=== PATIENT | male | born 1935 | race Caucasian/White ===

== ENCOUNTER 2017-07-14 10:48 | Inpatient (IN) | payer OTHER, MEDICARE ==
[~2017-07-14] VITALS: Ht 167.6 cm; Wt 71.2 kg
[2017-07-14 11:10] VITALS: BP 96/57; PULSE 69; RESP 16; TEMP 97.9; O2SAT 99
[2017-07-14 11:41] LABS: AUTOMATED NEUTROPHIL # 11.5 TH/MM3 (1.8-7.7); BASOPHIL % 0.3 % (0.0-2.0); EOSINOPHIL # 0.2 TH/MM3 (0-0.4); EOSINOPHIL % 1.1 % (0.0-4.0); HEMATOCRIT 44.5 % (39.0-51.0); HEMOGLOBIN 15.4 GM/DL (13.0-17.0); LYMPH % 13.9 % (9.0-44.0); LYMPHOCYTE # 2.1 TH/MM3 (1.0-4.8); MEAN CELL VOLUME 85.9 FL (80.0-100.0); MEAN CORPUSCULAR HEMOGLOBIN 29.7 PG (27.0-34.0); MEAN CORPUSCULAR HGB CONC 34.5 % (32.0-36.0); MONO % 8.9 % (0.0-8.0); MONOCYTE # 1.4 TH/MM3 (0-0.9); NEUT % 75.8 % (16.0-70.0); PLATELET COUNT 175 TH/MM3 (150-450); RED BLOOD COUNT 5.18 MIL/MM3 (4.50-5.90); RED CELL DISTRIBUTION WIDTH 12.9 % (11.6-17.2); WHITE BLOOD COUNT 15.1 TH/MM3 (4.0-11.0)
[2017-07-14 11:50] LABS: INTERNATIONAL NORMALIZED RATIO 1.4 RATIO; PROTHROMBIN TIME - PATIENT 13.7 SEC (9.8-11.6)
[2017-07-14 11:57] LABS: ALBUMIN 3.5 GM/DL (3.4-5.0); AST (GOT) 15 U/L (15-37); BICARBONATE 21.6 MEQ/L (21.0-32.0); BLOOD UREA NITROGEN 34 MG/DL (7-18); CALCIUM 9.5 MG/DL (8.5-10.1); CHLORIDE 91 MEQ/L (98-107); CREATININE 1.29 MG/DL (0.60-1.30); GLOMERULAR FILTRATION RATE 53 ML/MIN (>89); GLUCOSE,RANDOM 185 MG/DL (74-106); SODIUM (NA) 126 MEQ/L (136-145)
[2017-07-14 12:07] LABS: ALKALINE PHOSPHATASE 57 U/L (45-117); ALT (GPT) 25 U/L (12-78); TOTAL BILIRUBIN ADULT 0.8 MG/DL (0.2-1.0); TOTAL PROTEIN 6.6 GM/DL (6.4-8.2); TROPONIN I 0.06 NG/ML (0.02-0.05)
--- NOTE | 2017-07-14 12:08 | RADRPT ---
EXAM DATE/TIME: 07/14/2017 11:30 [facility] COMPARISON: No previous studies available for comparison. INDICATIONS : Altered mental status RADIATION DOSE: 56.35 CTDIvol (mGy) MEDICAL HISTORY : None SURGICAL HISTORY : None. ENCOUNTER: Initial ACUITY: 1 day PAIN SCALE: 0/10 LOCATION: cranial TECHNIQUE: Multiple contiguous axial images were obtained of the head. Using automated exposure control and adjustment of the mA and/or kV according to patient size, radiation dose was kept as low as reasonably achievable to obtain optimal diagnostic quality images. DICOM format image data is av ailable electronically for review and comparison. FINDINGS: CEREBRUM: The ventricles are normal for age. No evidence of midline shift, mass lesion, hemorrha ge or acute infarction. No extra-axial fluid collections are seen. POSTERIOR FOSSA: The cerebellum and brainstem are intact. The 4th ventricle is midline. The cer ebellopontine angle is unremarkable. EXTRACRANIAL: The visualized portion of the orbits is intact. SKULL: The calvaria is intact. No evidence of skull fracture. CONCLUSION: Negative for an acute process. Marcus Burgos MD FACR on July 14, 2017 at 12:05 Board Certified Radiologist. This report was verified electronically.
--- NOTE | 2017-07-14 12:11 | RADRPT ---
EXAM DATE/TIME: 07/14/2017 11:49 [facility] COMPARISON: No previous studies available for comparison. INDICATIONS : Weakness, dizziness, nausea, chest pressure. MEDICAL HISTORY : Myocardial infarction. SURGICAL HISTORY : Myeocardial window. ENCOUNTER: Initial ACUITY: 3 days PAIN SCORE: 3/10 LOCATION: Bilateral chest FINDINGS: A single view of the chest demonstrates the lungs to be symmetrically aerated without evidence of mas s, infiltrate or effusion. The cardiomediastinal contours are unremarkable. Osseous structures are intact. CONCLUSION: Normal examination for a patient of this age. Javi Busch MD on July 14, 2017 at 12:10 Board Certified Radiologist. This report was verified electronically.
[2017-07-14] MEDS ORDERED: LISI-587 PO (12:12)
[2017-07-14] MEDS ORDERED: ASPI-183 PO (12:12)
[2017-07-14] MEDS ORDERED: NOVORP2 SQ (12:12)
[2017-07-14] MEDS ORDERED: LIPI40TA PO (12:12)
[2017-07-14] MEDS ORDERED: OMEP20TA93 PO (12:12)
[2017-07-14] MEDS ORDERED: PRED20 PO (12:12)
[2017-07-14] MEDS ORDERED: KETO0.5S2 RIGHT EYE (12:12)
[2017-07-14] MEDS ORDERED: TIMO0.255 EACH EYE (12:12)
[2017-07-14] MEDS ORDERED: METF1000 PO (12:12)
[2017-07-14] MEDS ORDERED: LATA.005%O EACH EYE (12:12)
[2017-07-14] MEDS ORDERED: SODIUM CHLORID 0.9% 500 ML INJ 500 ML IV ONE (12:30)
[2017-07-14] MEDS ORDERED: ASPIRIN 81 MG CHEW TAB CHEW ONE (13:15)
[2017-07-14 13:45] VITALS: BP 107/57; PULSE 79; RESP 20; O2SAT 98
[2017-07-14 13:49] LABS: BILIRUBIN, URINE NEG (NEG); BLOOD, URINE NEG (NEG); GLUCOSE,URINE NEG (NEG); HYALINE CAST, URINE 9 /lpf (RARE); KETONE, URINE 10 mg/dL (NEG); MUCUS URINE FEW /lpf (OCC); NITRITE,URINE NEG (NEG); PH, URINE 5.5 (5.0-8.5); URINE COLOR YELLOW (YELLW/STRAW); URINE LEUKOCYTE ESTERASE NEG (NEG)
--- NOTE | 2017-07-14 14:17 | EKG ---
Date Performed: 07/14/2017 Time Performed: 11:16:19 PTAGE: 82 years EKG: Sinus rhythm MARKED LEFT AXIS DEVIATION PATTERN CONSISTENT WITH PULMONARY DISEASE ABNORMAL ECG NO PREVIOUS TRACING DOCTOR: Edgar Plata Interpretating Date/Time 07/14/2017 14:17:05
[2017-07-14 15:13] VITALS: BP 106/57; PULSE 72; RESP 14; O2SAT 100
[2017-07-14] MEDS: SODIUM CHLOR 0.9% 1000 ML INJ 1,000 ML IV SCH (15:13)
--- NOTE | 2017-07-14 17:03 | PD ---
HPI Chief Complaint: Altered Mental Status Time Seen by Provider: 11:15 Travel History International Travel<30 days: No Contact w/Intl Traveler<30days: No Traveled to known affect area: No History of Present Illness HPI Patient is an 82-year-old [place]. The patient is awake and alert, oriented. He says that [place] and felt very unsteady on his feet. He says when he got into the started to feel "sick." He says he has been having waves of nausea. He says he does have occasional chest pain, substernally, he describes it as pressure. He denies fever chills. Denies headache, vomiting. He says he has noticed his blood pressure has been low. He does recall one day a week ago where his blood pressure was very high and he had a pulse of 150. Severity is mild to moderate. PFSH Past Medical History High Cholesterol: Yes Diabetes: Yes Patient Takes Glucophage: No Diminished Hearing: No Hypertension: Yes Tetanus Vaccination: < 5 Years Influenza Vaccination: Yes Social History Alcohol Use: No Tobacco Use: No Substance Use: No Allergies-Medications (Allergen,Severity, Reaction): Coded Allergies: No Known Allergies (Verified Allergy, Unknown, 07/14/17) Reported Meds & Prescriptions Reported Meds & Active Scripts Active Reported Ketorolac Opth Drops 0.5% Drops 1 Drop RIGHT EYE QID Lipitor (Atorvastatin Calcium) 40 Mg Tab 20 Mg PO HS Aspirin 325 Mg Tab 325 Mg PO DAILY Omeprazole 20 Mg Tab 40 Mg PO DAILY Take 30 minutes prior to the same meal each day Metformin (Metformin HCl) 1,000 Mg Tab 1,000 Mg PO BID Timoptic Opth Drops (Timolol Opth Drops) 0.25 % Soln 2 Drop EACH EYE DAILY Prednisone 20 Mg Tab 60 Mg PO DAILY Take 40 mg (2 tablets) daily for 5 days Xalatan Opth Drops (Latanoprost) 0.005% Drops 1 Drop EACH EYE HS Novolin R Inj (Insulin Human Regular) 1,000 Unit/10 Ml Vial 0 SQ ACHS Sliding Scale As Directed. 70-149=0 UNITS, 150-199=3 UNITS, 200-249=4 UNITS, 250-299=6 UNITS, 300-349=8 UNITS, 350 OR MORE=10 UNITS Zestoretic (Lisinopril-Hctz) 20-25 Mg Tab 1 Tab PO DAILY Review of Systems Except as stated in HPI: all other systems reviewed are Neg General / Constitutional: No: Fever, Chills HENT: Positive: Lightheadedness, No: Headaches Cardiovascular: Positive: Chest Pain or Discomfort Respiratory: No: Cough, Shortness of Breath Gastrointestinal: Positive: Nausea, No: Vomiting, Abdominal Pain Musculoskeletal: No: Edema Skin: No Rash, No Change in Pigmentation Neurologic: Positive: Dizziness Physical Exam Narrative GENERAL: Awake and alert, in no acute distress. SKIN: Focused skin assessment warm/dry. No wounds or signs of infection. HEAD: Atraumatic. Normocephalic. EYES: Pupils equal and round. No scleral icterus. Extraocular movements intact. ENT: Mucous membranes pink and moist. NECK: Trachea midline. No JVD. CARDIOVASCULAR: Regular rate and rhythm. No murmur appreciated. RESPIRATORY: No accessory muscle use. Clear to auscultation. Breath sounds equal bilaterally. GASTROINTESTINAL: Abdomen soft, non-tender, nondistended. MUSCULOSKELETAL: No obvious deformities. No clubbing. No cyanosis. No edema. NEUROLOGICAL: Awake and alert. No obvious cranial nerve deficits. Motor grossly within normal limits. Normal speech. PSYCHIATRIC: Appropriate mood and affect; insight and judgment normal. Data Data Last Documented VS Vital Signs Date Time Temp Pulse Resp B/P (MAP) Pulse Ox O2 Delivery O2 Flow Rate FiO2 07/14/17 13:45 79 20 107/57 (74) 98 Room Air 07/14/17 11:10 97.9 Orders Orders Complete Blood Count With Diff (07/14/17 11:15) Comprehensive Metabolic Panel (07/14/17 11:15) Prothrombin Time / Inr (Pt) (07/14/17 11:15) Act Partial Throm Time (Ptt) (07/14/17 11:15) Troponin I (07/14/17 11:15) Thyroid Stimulating Hormone (07/14/17 11:15) Urinalysis - C+S If Indicated (07/14/17 11:15) Chest, Single Ap (07/14/17 11:15) Ct Brain W/O Iv Contrast(Rout) (07/14/17 11:15) Blood Glucose (07/14/17 11:15) Ecg Monitoring (07/14/17 11:15) Iv Access Insert/Monitor (07/14/17 11:15) Oximetry (07/14/17 11:15) Cortisol (07/14/17 11:15) Sodium Chlorid 0.9% 500 Ml Inj (Ns 500 M (07/14/17 12:30) Aspirin Chew (Aspirin Chew) (07/14/17 13:15) Cath For Specimen (07/14/17 13:15) Electrocardiogram (07/14/17 ) Admit Order (Ed Use Only) (07/14/17 ) Admit To Inpatient (07/14/17 ) Inpatient Certification (07/14/17 ) Diet Regular Basic (07/14/17 Dinner) Vital Signs (Adult) ENA.Q4H (07/14/17 14:48) Consult Pt Eval & Treat (07/14/17 14:48) Vital Signs (Adult) ENA.Q4H (07/14/17 14:49) Sodium Chlor 0.9% 1000 Ml Inj (Ns 1000 M (07/14/17 15:00) Labs Laboratory Tests Test 07/14/17 11:30 07/14/17 13:20 White Blood Count 15.1 TH/MM3 Red Blood Count 5.18 MIL/MM3 Hemoglobin 15.4 GM/DL Hematocrit 44.5 % Mean Corpuscular Volume 85.9 FL Mean Corpuscular Hemoglobin 29.7 PG Mean Corpuscular Hemoglobin Concent 34.5 % Red Cell Distribution Width 12.9 % Platelet Count 175 TH/MM3 Mean Platelet Volume 10.0 FL Neutrophils (%) (Auto) 75.8 % Lymphocytes (%) (Auto) 13.9 % Monocytes (%) (Auto) 8.9 % Eosinophils (%) (Auto) 1.1 % Basophils (%) (Auto) 0.3 % Neutrophils # (Auto) 11.5 TH/MM3 Lymphocytes # (Auto) 2.1 TH/MM3 Monocytes # (Auto) 1.4 TH/MM3 Eosinophils # (Auto) 0.2 TH/MM3 Basophils # (Auto) 0.0 TH/MM3 CBC Comment DIFF FINAL Differential Comment Prothrombin Time 13.7 SEC Prothromb Time International Ratio 1.4 RATIO Activated Partial Thromboplast Time 24.3 SEC Blood Urea Nitrogen 34 MG/DL Creatinine 1.29 MG/DL Random Glucose 185 MG/DL Total Protein 6.6 GM/DL Albumin 3.5 GM/DL Calcium Level 9.5 MG/DL Alkaline Phosphatase 57 U/L Aspartate Amino Transf (AST/SGOT) 15 U/L Alanine Aminotransferase (ALT/SGPT) 25 U/L Total Bilirubin 0.8 MG/DL Sodium Level 126 MEQ/L Potassium Level 4.3 MEQ/L Chloride Level 91 MEQ/L Carbon Dioxide Level 21.6 MEQ/L Anion Gap 13 MEQ/L Estimat Glomerular Filtration Rate 53 ML/MIN Troponin I 0.06 NG/ML Thyroid Stimulating Hormone 3rd Gen 2.460 uIU/ML Random Cortisol 26.3 MCG/DL Urine Color YELLOW Urine Turbidity CLEAR Urine pH 5.5 Urine Specific [place] 1.012 Urine Protein NEG mg/dL Urine Glucose (UA) NEG mg/dL Urine Ketones 10 mg/dL Urine Occult Blood NEG Urine Nitrite NEG Urine Bilirubin NEG Urine Urobilinogen LESS THAN 2.0 MG/DL Urine Leukocyte Esterase NEG Urine RBC LESS THAN 1 /hpf Urine WBC 1 /hpf Urine Hyaline Casts 9 /lpf Urine Mucus FEW /lpf Microscopic Urinalysis Comment CATH-CULT NOT IND MDM Medical Decision Making Medical Screen Exam Complete: Yes Emergency Medical Condition: Yes Medical Record Reviewed: Yes Interpretation(s) ECG shows normal sinus rhythm, no ST elevation or depression. Differential Diagnosis UTI versus dehydration versus electrolyte abnormality versus CVA Narrative Course Patient is an 82-year-old male who comes in due to altered mental status. Patient says he is just been feeling weak and dizzy. Exam shows no neurologic abnormalities. IV established, labs sent. Labs show some evidence of dehydration. His sodium is 126. His white count is 15.1. His troponin is very slightly elevated to 0.06. He was given aspirin. He was given a bolus of fluids. Chest x-ray and CT of the head performed show no acute abnormalities. Last [address] 07/14/17 1115 Signed Impressions: Service Date/Time: Friday, July 14, 2017 11:30 - CONCLUSION: Negative for an acute process. Marcus Burgos MD FACR Chest X-Ray 07/14/17 1115 Signed Impressions: Service Date/Time: Friday, July 14, 2017 11:49 - CONCLUSION: Normal examination for a patient of this age. Javi Busch MD Patient has been on chronic steroids, has not had steroids since Wednesday, there is some concern for adrenal insufficiency. Patient will be admitted for further management. Diagnosis Primary Impression: Altered mental status Qualified Codes: R41.82 - Altered mental status, unspecified Additional Impressions: Dehydration Hyponatremia Elevated troponin Admitting Information Admitting Physician Requests: Admit Bhakti Peguero MD Jul 14, 2017 17:03
[2017-07-14 18:30] VITALS: BP 124/66; PULSE 75; RESP 19; O2SAT 100
--- NOTE | 2017-07-14 18:37 | HHI.HP ---
[facility] Admission Diagnosis Elevated Troponin, AMS, hyponatremia Diagnoses: Chief Complaint: Generalized weakness, dizziness Travel History International Travel<30 Days: No Contact w/Intl Traveler <30 Da: No Traveled to Known Affected Are: No History of Present Illness Patient is a 82-year-old male right handed history of diabetes type 2, hypertension. He was recently discharged from [facility] in [place] because of vision loss ? edema, inflammation specifically of the right eye. Unclear what the diagnosis is but sounds like optic neuritis as patient was placed on high-dose steroids. He states that he was on June 26. and he was given high -dose IV steroids and then was discharged on 60 mg of prednisone once a day for 11 days which he completed on July 09. He has been off the steroids for the past 5 days now. states that he has been getting weaker. This a.m. on way to [facility] while walking felt lightheaded with near passing out sensation. With bilateral leg weakness and feels like falling. Patient also states that he has not been eating well for the past 10 days. He checks his blood sugars on a regular basis and states good hypoglycemic awareness. He is on metformin at home for his diabetes and when discharged from [place] he was given a sliding scale of insulins to be given based on blood sugar readings. His initial blood pressure on evaluation the ER was systolic blood pressures in the 80s. With regards to his vision he states that there was no improvement in the medial vision of his right eye even on completing course of steroids. His left eye has fairly good condition with history of glaucoma 20/40 vision. The plan was for follow-up and possible surgery per patient that involves going through the groin- doesn't sound like a shunt. Patient states that his knows more details. I tried calling the number listed [phone] no unanswered left message. Patient was referred here and admitted for further evaluation and management. Patient currently is awake alert denies any headache but is very anxious about totally losing his right vision Past Family Social History Past Medical History Patient denies any history of CVA, denies any history of CAD. Diabetes type 2 on metformin. And on sliding scale Regular Insulin since he was started on steroids. History of hypertension Past Surgical History Bowel resection many years ago secondary to a mass which turned out to be precancerous. History of prostate cancer status post radiation therapy History pericardial effusion with a pericardial window was placed this was in 1970s. Reported Medications Ketorolac Opth Drops 0.5% Drops 1 Drop RIGHT EYE QID Lipitor (Atorvastatin Calcium) 40 Mg Tab 20 Mg PO HS Aspirin 325 Mg Tab 325 Mg PO DAILY Omeprazole 20 Mg Tab 40 Mg PO DAILY Take 30 minutes prior to the same meal each day Metformin (Metformin HCl) 1,000 Mg Tab 1,000 Mg PO BID Timoptic Opth Drops (Timolol Opth Drops) 0.25 % Soln 2 Drop EACH EYE DAILY Xalatan Opth Drops (Latanoprost) 0.005% Drops 1 Drop EACH EYE HS Novolin R Inj (Insulin Human Regular) 1,000 Unit/10 Ml Vial 0 SQ ACHS Sliding Scale As Directed. 70-149=0 UNITS, 150-199=3 UNITS, 200-249=4 UNITS, 250-299=6 UNITS, 300-349=8 UNITS, 350 OR MORE=10 UNITS Zestoretic (Lisinopril-Hctz) 20-25 Mg Tab 1 Tab PO DAILY S/P course of Prednisone course 07/09 Allergies: Coded Allergies: No Known Allergies (Verified Allergy, Unknown, 07/14/17) Family History Noncontributory Social History History of smoking quit 40 years ago Denies alcohol or IV drug use Physical Exam Vital Signs Vital Signs Date Time Temp Pulse Resp B/P (MAP) Pulse Ox O2 Delivery O2 Flow Rate FiO2 07/14/17 18:30 75 19 124/66 (85) 100 Room Air 07/14/17 15:13 72 14 106/57 (73) 100 Room Air 07/14/17 13:45 79 20 107/57 (74) 98 Room Air 07/14/17 11:10 97.9 69 16 96/57 (70) 99 Physical Exam GENERAL: This is a well-nourished, well-developed patient, in no apparent distress. SKIN: No rashes, ecchymoses or lesions. Cool and dry. HEAD: Atraumatic. Normocephalic. No temporal or scalp tenderness. EYES: Pupils equal round . No scleral icterus. No injection or drainage. EOM full range of motion bilaterally left eye- 20/40 vision- per patient baseline right eye- lateral peripheral vision - can still make out fingers but on nasal side/medial vision- unable to see ENT: Nose without bleeding, purulent drainage or septal hematoma. Throat without erythema, tonsillar hypertrophy or exudate. Uvula midline. Airway patent. NECK: Trachea midline. No JVD or lymphadenopathy. Supple, nontender, no meningeal signs. CARDIOVASCULAR: Regular rate and rhythm without murmurs, gallops, or rubs. RESPIRATORY: Clear to auscultation. Breath sounds equal bilaterally. No wheezes , rales, or rhonchi. GASTROINTESTINAL: Abdomen soft, non-tender, nondistended. No hepato-splenomegaly , or palpable masses. No guarding. MUSCULOSKELETAL: Extremities without clubbing, cyanosis, or edema. No joint tenderness, effusion, or edema noted. No calf tenderness. Negative Homans sign bilaterally. NEUROLOGICAL: Awake and alert. Cranial nerves II through XII intact. Motor and sensory grossly within normal limits. Five out of 5 muscle strength in all muscle groups. Normal speech. gait testing deferred Laboratory Laboratory Tests Test 07/14/17 11:30 07/14/17 13:20 White Blood Count 15.1 Red Blood Count 5.18 Hemoglobin 15.4 Hematocrit 44.5 Mean Corpuscular Volume 85.9 Mean Corpuscular Hemoglobin 29.7 Mean Corpuscular Hemoglobin Concent 34.5 Red Cell Distribution Width 12.9 Platelet Count 175 Mean Platelet Volume 10.0 Neutrophils (%) (Auto) 75.8 Lymphocytes (%) (Auto) 13.9 Monocytes (%) (Auto) 8.9 Eosinophils (%) (Auto) 1.1 Basophils (%) (Auto) 0.3 Neutrophils # (Auto) 11.5 Lymphocytes # (Auto) 2.1 Monocytes # (Auto) 1.4 Eosinophils # (Auto) 0.2 Basophils # (Auto) 0.0 CBC Comment DIFF FINAL Differential Comment Prothrombin Time 13.7 Prothromb Time International Ratio 1.4 Activated Partial Thromboplast Time 24.3 Blood Urea Nitrogen 34 Creatinine 1.29 Random Glucose 185 Total Protein 6.6 Albumin 3.5 Calcium Level 9.5 Alkaline Phosphatase 57 Aspartate Amino Transf (AST/SGOT) 15 Alanine Aminotransferase (ALT/SGPT) 25 Total Bilirubin 0.8 Sodium Level 126 Potassium Level 4.3 Chloride Level 91 Carbon Dioxide Level 21.6 Anion Gap 13 Estimat Glomerular Filtration Rate 53 Troponin I 0.06 Thyroid Stimulating Hormone 3rd Gen 2.460 Random Cortisol 26.3 Urine Color YELLOW Urine Turbidity CLEAR Urine pH 5.5 Urine Specific Hallie 1.012 Urine Protein NEG Urine Glucose (UA) NEG Urine Ketones 10 Urine Occult Blood NEG Urine Nitrite NEG Urine Bilirubin NEG Urine Urobilinogen LESS THAN 2.0 Urine Leukocyte Esterase NEG Urine RBC LESS THAN 1 Urine WBC 1 Urine Hyaline Casts 9 Urine Mucus FEW Microscopic Urinalysis Comment CATH-CULT NOT IND Result Diagram: 07/14/17 1130 07/14/17 1130 Imaging Last Impressions Head CT 07/14/17 1115 Signed Impressions: Service Date/Time: Friday, July 14, 2017 11:30 - CONCLUSION: Negative for an acute process. Marcus Burgos MD FACR Chest X-Ray 07/14/17 1115 Signed Impressions: Service Date/Time: Friday, July 14, 2017 11:49 - CONCLUSION: Normal examination for a patient of this age. MD Eunice Vazquez VTE Risk Assessment Caprini VTE Risk Assessment: Mod/High Risk (score >= 2) VTE Pharm Contraindication: ? hsitory of bleeding in the right eye Caprini Risk Assessment Model Point Value = 1 Point Value = 2 Point Value = 3 Point Value = 5 Age 41-60 Minor surgery BMI > 25 kg/m2 Swollen legs Varicose veins or History of unexplained or recurrent spontaneous Oral contraceptives or hormone replacement Sepsis (< 1 month) Serious lung disease, including pneumonia (< 1 month) Abnormal pulmonary function Acute myocardial infarction Congestive heart failure (< 1 month) History of inflammatory bowel disease Medical patient at bed rest Age 61-74 Arthroscopic surgery Major open surgery (> 45 min) Laparoscopic surgery (> 45 min) Malignancy Confined to bed (> 72 hours) Immobilizing plaster cast Central venous access Age >= 75 History of VTE Family history of VTE Factor V Leiden Prothrombin [id number] Lupus anticoagulant Anticardiolipin antibodies Elevated serum homocysteine Heparin-induced thrombocytopenia Other congenital or acquired thrombophilia Stroke (< 1 month) Elective arthroplasty Hip, pelvis, or leg fracture Acute spinal cord injury (< 1 month) Prophylaxis Regimen Total Risk Factor Score Risk Level Prophylaxis Regimen 0-1 Low Early ambulation 2 Moderate Order ONE of the following: *Sequential Compression Device (SCD) *Heparin 5000 units SQ BID 3-4 Higher Order ONE of the following medications: *Heparin 5000 units SQ TID *Enoxaparin/Lovenox 40 mg SQ daily (WT < 150 kg, CrCl > 30 mL/min) *Enoxaparin/Lovenox 30 mg SQ daily (WT < 150 kg, CrCl > 10-29 mL/min) *Enoxaparin/Lovenox 30 mg SQ BID (WT < 150 kg, CrCl > 30 mL/min) AND/OR *Sequential Compression Device (SCD) 5 or more Highest Order ONE of the following medications: *Heparin 5000 units SQ TID (Preferred with Epidurals) *Enoxaparin/Lovenox 40 mg SQ daily (WT < 150 kg, CrCl > 30 mL/min) *Enoxaparin/Lovenox 30 mg SQ daily (WT < 150 kg, CrCl > 10-29 mL/min) *Enoxaparin/Lovenox 30 mg SQ BID (WT < 150 kg, CrCl > 30 mL/min) AND *Sequential Compression Device (SCD) Assessment and Plan Assessment and Plan 82-year-old male presenting with generalized weakness dizziness, weakness status post recent course of high-dose steroids June 26 43 was on high-dose IV steroids and was discharged on 60 mg of prednisone once a day for 11 days recently completed July 09. Possible relative adrenal insufficiency. Hypotension. We'll start on by mouth steroids Check orthostatics Continue IV fluids. Patient blood pressure now is 122/70. We'll check 2-D echo and carotid ultrasound for completion give prednisone 40 mg po x 1 now then start Prednisone 20 mg po bid in am Recent history of Acute right vision loss- edema vs neuritis vs vascular in etiology History of glaucoma- chronic . no improvement with steroids. But will restart this due to above #1 and do gradual taper Continue on glaucoma eyedrops medications. Per patient he was supposed to follow-up with ophthalmology sometime this week and was planned to refer to a neurovascular surgeon for procedure - in [place] that involves "going going through the right groin" Doesn't know the details and states his knows details Tried calling number on the his [phone] no answer. Will try again tomorrow and get more records Ophthalmology consult in house Diabetes type 2 on metformin + SS regular insulin Will expect blood sugars to be labile and erratic secondary to steroids Will start patient on sliding scale Hold off on metformin for now. Hyponatremia. Can be secondary to steroids. We'll check BMP in a.m. TSH normal History of hypertension. low BPs . Will discontinue his BP meds Zestoretic History of hyperlipidemia continue on statins. Check CK level. Generalized weakness with a PT consult in a.m. nonfocal exam Motor exam there was no proximal muscle weakness noted. Leukocytosis- likely reactive from steroids use Bilateral teds SCDs for DVT prophylaxis continue PPI PT eval in am Physician Certification 2 Midnight Certification Type: Admission for Inpatient Services Order for Inpatient Services The services are ordered in accordance with Medicare regulations or non- Medicare payer requirements, as applicable. In the case of services not specified as inpatient-only, they are appropriately provided as inpatient services in accordance with the 2-midnight benchmark. Estimated LOS (days): 3 days is the estimated time the patient will need to remain in the hospital, assuming treatment plan goals are met and no additional complications. Post-Hospital Plan: Not yet determined Sylvester Richardson MD Jul 14, 2017 18:37
[2017-07-14] MEDS ORDERED: GLUCAGON 1 MG/ML VIAL OTHER PRN ×2 (19:15)
[2017-07-14] MEDS ORDERED: GLUCAGON 1 MG/ML VIAL IM PRN (19:15)
[2017-07-14] MEDS ORDERED: DEXTROSE 50% IN WATER 50 ML VIAL(D50) IV PUSH PRN ×3 (19:15)
[2017-07-14 20:00] VITALS: BP 110/58; PULSE 71; RESP 18; TEMP 98.2; O2SAT 99
[2017-07-14] MEDS ORDERED: predniSONE 20 MG TAB PO ONE ×2 (20:00→20:15)
[2017-07-14 20:27] LABS: TROPONIN I 0.05 NG/ML (0.02-0.05)
--- NOTE | 2017-07-14 20:43 | RADRPT ---
EXAM DATE/TIME: 07/14/2017 19:07 [facility] COMPARISON: No previous studies available for comparison. INDICATIONS : Transient ischemic attack. MEDICAL HISTORY : Hypercholesterolemia. Hypertension. Diabetes. Blindness. Prostate cancer. Radiation therapy. Parica rdial effusion. SURGICAL HISTORY : Bowel resection. ENCOUNTER: Initial ACUITY: 1 day PAIN SCORE: 0/10 LOCATION: Bilateral neck PEAK SYSTOLIC VELOCITIES (cm/sec): ICA/CCA RATIO: Right: 1.3 Left: 1.2 ICA: Right: 106 Left: 103 CCA: Right: 81 Left: 83 ECA: Right: 111 Left: 81 VERTEBRAL: Right: 53 antegrade Left: 54 antegrade Elevated flow velocities and ICA/CCA ratios have been found to correlate with increased degrees of vessel stenosis, calculated as percentage of diameter relative to a normal segment of distal ICA/CCA FINDINGS: RIGHT CAROTID: No significant stenosis is visualized. The waveforms are within normal limits. LEFT CAROTID: No significant stenosis is visualized. The waveforms are within normal limits. VERTEBRAL ARTERIES: Antegrade flow is seen in both vertebral arteries. MISCELLANEOUS: None. CONCLUSION: 1. Mild visible plaque formation in the carotid arteries. No hemodynamically significant stenosis. Arben Crews MD on July 14, 2017 at 20:40 Board Certified Radiologist. This report was verified electronically.
[2017-07-14] MEDS ORDERED: predniSONE 20 MG TAB PO SCH (21:00)
[2017-07-14] MEDS: KETOROLAC TROMETHAMINE 0.5% OPHT SOLN 5 ML BTL RIGHT EYE SCH (21:00)
[2017-07-14] MEDS: LATANOPROST 0.005% OPHT SOLN 2.5 ML BTL EACH EYE SCH (22:06)
[2017-07-14] MEDS: ATORVASTATIN 20 MG TAB PO SCH (22:07)
[2017-07-14] MEDS: INSULIN ASPART SUPPLEMENTAL SCALE SQ SCH (22:07)
[2017-07-15] VITALS (10 sets, daily range): BP systolic 111–146; BP diastolic 58–68; PULSE 64–92; RESP 13–19; TEMP 97.6–98.4; O2SAT 96–100
[2017-07-15] MEDS: SODIUM CHLOR 0.9% 1000 ML INJ 1,000 ML IV SCH ×2 (01:08→14:50)
[2017-07-15] MEDS ORDERED: diphenhydrAMINE HCL 25 MG CAP PO ONE ×2 (01:45→21:45)
[2017-07-15 07:21] LABS: AUTOMATED NEUTROPHIL # 6.5 TH/MM3 (1.8-7.7); BASOPHIL % 0.1 % (0.0-2.0); EOSINOPHIL % 0.1 % (0.0-4.0); HEMOGLOBIN 13.7 GM/DL (13.0-17.0); LYMPH % 11.5 % (9.0-44.0); LYMPHOCYTE # 0.9 TH/MM3 (1.0-4.8); MEAN CELL VOLUME 86.9 FL (80.0-100.0); MEAN CORPUSCULAR HEMOGLOBIN 30.4 PG (27.0-34.0); MONO % 4.6 % (0.0-8.0); MONOCYTE # 0.4 TH/MM3 (0-0.9); NEUT % 83.7 % (16.0-70.0); PLATELET COUNT 148 TH/MM3 (150-450); RED BLOOD COUNT 4.49 MIL/MM3 (4.50-5.90); WHITE BLOOD COUNT 7.8 TH/MM3 (4.0-11.0)
[2017-07-15] MEDS: INSULIN ASPART SUPPLEMENTAL SCALE SQ SCH ×4 (08:00→21:13)
--- NOTE | 2017-07-15 08:36 | HHI.PR ---
Subjective Remarks no headaches, feels stronger has been up going to bathroom- ambulating- no dizziness, nausea or vomiting BS 208 vision unchanged Objective Vitals Vital Signs Date Time Temp Pulse Resp B/P (MAP) Pulse Ox O2 Delivery O2 Flow Rate FiO2 07/15/17 04:00 92 07/15/17 04:00 Room Air 07/15/17 04:00 98.0 68 18 118/60 (79) 98 07/15/17 00:00 97.9 67 18 112/66 (81) 99 07/15/17 00:00 Room Air 07/15/17 00:00 80 07/14/17 21:00 Room Air 07/14/17 20:30 21 07/14/17 20:24 07/14/17 20:00 98.2 71 18 110/58 (75) 99 07/14/17 19:43 (85) 07/14/17 18:30 75 19 124/66 (85) 100 Room Air 07/14/17 15:13 72 14 106/57 (73) 100 Room Air 07/14/17 13:45 79 20 107/57 (74) 98 Room Air 07/14/17 11:10 97.9 69 16 96/57 (70) 99 I/O 07/14/17 07/14/17 07/14/17 07/15/17 07/15/17 07/15/17 07:00 15:00 23:00 07:00 15:00 23:00 Intake Total 500 ml Balance 500 ml Intake IV Total 500 ml Result Diagram: 07/15/17 0630 07/14/17 1950 Imaging Last Impressions Head CT 07/14/17 1115 Signed Impressions: Service Date/Time: Friday, July 14, 2017 11:30 - CONCLUSION: Negative for an acute process. Marcus Burgos MD FACR Chest X-Ray 07/14/17 1115 Signed Impressions: Service Date/Time: Friday, July 14, 2017 11:49 - CONCLUSION: Normal examination for a patient of this age. Javi Busch MD Carotid Artery Ultrasound 07/14/17 0000 Signed Impressions: Service Date/Time: Friday, July 14, 2017 19:07 - CONCLUSION: 1. Mild visible plaque formation in the carotid arteries. No hemodynamically significant stenosis. Arben Crews MD Objective Remarks awake and alert, oriented x 3 anicteric EOM full range of motion right eye- + lateral vision but medial vision absent no facial asymmetry no nuchal rigidity lungs-clear regular rhyhtm abdomen soft, nontender extremities no edema A/P Assessment and Plan 82-year-old male presenting with generalized weakness dizziness, weakness status post recent course of high-dose steroids June 26 45 was on high-dose IV steroids and was discharged on 60 mg of prednisone once a day for 11 days recently completed July 09. Possible relative adrenal insufficiency. Hypotension. History of hypertension MOnitor BPs off IVF We'll check 2-D echo and carotid ultrasound for completion given prednisone 40 mg po x 1 on admission then start Prednisone 20 mg po bid as OP was on Zestoretic- discontinued on admission Recent history of Acute right vision loss- edema vs neuritis vs vascular in etiology History of glaucoma- chronic . no improvement with steroids. But will restart this due to above #1 and do gradual taper Continue on glaucoma eyedrops medications. spoke to briefly on phone - per was supposed to be referred to a neurovascular operations management trainee specialist in [place] - there was some "bleed" - Ophthalmology consult in house Diabetes type 2 on metformin + SS regular insulin Will expect blood sugars to be labile and erratic secondary to steroids Will start patient on sliding scale Metformin as OP_ hold for now- ff BMP start standing Levemer hs Hyponatremia. . Improved. . TSH normal History of hyperlipidemia continue on statins. Check CK level. Generalized weakness with a PT consult in a.m. nonfocal exam Motor exam there was no proximal muscle weakness noted. Leukocytosis- likely reactive from steroids use SCds/RICHARDSON for DVT prophylaxsis Early ambulation HOld chemical prophylaxis- with ? bleed in the eye If stable- consider DC home today or in am with steroid after seen by Ophthalmology Sylvester Lima MD Jul 15, 2017 08:36
[2017-07-15] MEDS: KETOROLAC TROMETHAMINE 0.5% OPHT SOLN 5 ML BTL RIGHT EYE SCH ×4 (09:00→21:00)
[2017-07-15] MEDS: TIMOLOL MALEATE 0.25% OPHT SOLN 5 ML BTL EACH EYE SCH (09:00)
[2017-07-15] MEDS: ASPIRIN 325 MG TAB PO SCH (09:29)
[2017-07-15] MEDS: PANTOPRAZOLE SOD 40 MG DELAYED RELEASE TAB PO SCH (09:30)
[2017-07-15] MEDS: predniSONE 20 MG TAB PO SCH ×2 (09:30→21:00)
[2017-07-15 11:27] LABS: BICARBONATE 26.3 MEQ/L (21.0-32.0); CALCIUM 8.7 MG/DL (8.5-10.1); CREATININE 1.04 MG/DL (0.60-1.30)
--- NOTE | 2017-07-15 15:21 | ECHRPT ---
Indication: Presyncope CONCLUSIONS The left ventricular systolic function is low normal with an estimated ejection fraction in the rang e of 50- 55%. Wall thickness is measured at the upper limits of normal. Normal left ventricular size. There is trace tricuspid valve regurgitation. The estimated pulmonary arterial pressure is 39.4 mmHg. BP: 118 / 60 HR: 92 Rhythm: Sinus MEASUREMENTS (Male / Female) Normal Values Technical Quality:Very technically difficult study 2D ECHO LV Diastolic Diameter PLAX 4.2 cm 4.2 - 5.9 / 3.9 - 5.3 cm LV Systolic Diameter PLAX 3.0 cm IVS Diastolic Thickness 1.1 cm 0.6 - 1.0 / 0.6 - 0.9 cm LVPW Diastolic Thickness 1.0 cm 0.6 - 1.0 / 0.6 - 0.9 cm LV Relative Wall Thickness 0.5 RV Internal Dim ED PLAX 3.2 cm LVOT Diameter 1.7 cm LA Systolic Diameter LX 3.8 cm 3.0 - 4.0 / 2.7 - 3.8 cm M-MODE Aortic Root Diameter MM 3.3 cm LA Systolic Diameter MM 3.0 cm LA Ao Ratio MM 0.9 AV Cusp Separation MM 1.7 cm DOPPLER AV Peak Velocity 112.0 cm/s AV Peak Gradient 5.0 mmHg LVOT Peak Velocity 71.3 cm/s LVOT Peak Gradient 2.0 mmHg AV Area Cont Eq pk 1.4 cm MV Area PHT 2.9 cm Mitral E Point Velocity 44.4 cm/s Mitral A Point Velocity 57.1 cm/s Mitral E to A Ratio 0.8 LV E' Lateral Velocity 7.2 cm/s Mitral E to LV E' Lateral Ratio 6.2 LV E' Septal Velocity 7.0 cm/s Mitral E to LV E' Septal Ratio 6.3 TR Peak Velocity 271.0 cm/s TR Peak Gradient 29.4 mmHg Right Atrial Pressure 10.0 mmHg Pulmonary Artery Systolic Pressu 39.4 mmHg Right Ventricular Systolic Press 39.4 mmHg FINDINGS LEFT VENTRICLE Wall thickness is measured at the upper limits of normal. Normal left ventricular size. The left ventricular systolic function is low normal with an estimated ejection fraction in the rang e of 50- 55%. RIGHT VENTRICLE Normal right ventricular size and systolic function. LEFT ATRIUM The left atrial size is normal. RIGHT ATRIUM The right atrial size is normal. ATRIAL SEPTUM Normal atrial septal thickness without atrial level shunting by limited color doppler interrogation. AORTA The aortic root and proximal ascending aorta are normal in size on limited imaging. MITRAL VALVE Structurally normal mitral valve. No mitral valve stenosis or regurgitation. AORTIC VALVE Trileaflet aortic valve. No aortic valve stenosis or regurgitation. TRICUSPID VALVE Structurally normal tricuspid valve. There is trace tricuspid valve regurgitation. The estimated pulmonary arterial pressure is 39.4 mmHg. PULMONARY VALVE No pulmonary valve regurgitation or stenosis. VESSELS The inferior vena cava is normal in size. PERICARDIUM No pericardial effusion. Junior Miller MD, FACC, [facility] [place] (Electronically Signed) Final Date:15 July 2017 15:20
--- NOTE | 2017-07-15 16:45 | PD.CONS ---
History of Present Illness Service Ophthalmology Consult Requested By Reason for Consult decreased vision OD Primary Care Physician [facility] Diagnoses: History of Present Illness 82 yo WM with a h/o DM, HTN. He had sudden decreased vision in his right eye nasally early this month and went to see his Presser Machine at the [place]. They dilated him and found a hyperemic, edematous optic disc OD. He was sent to see the Retina specialist at the [facility] (Dr. Santoyo) who recommended he get 3 days of IV Solumedrol. He also had an extensive workup - Lyme, Bartonella, Toxo , RPR all neg. LP was done which had normal results as well. He was discharged on oral steroids which has led to him feeling weaker. 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 2 days ago he felt lightheaded as if he was going to pass out which led to his admission at [facility]. 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 His follow up visit with Dr. Santoyo was supposed to be in the beginning of July. Past Family Social History Allergies: Coded Allergies: No Known Allergies (Verified Allergy, Unknown, 07/14/17) Physical Exam Vital Signs Vital Signs Date Time Temp Pulse Resp B/P (MAP) Pulse Ox O2 Delivery O2 Flow Rate FiO2 07/15/17 15:38 07/15/17 15:36 84 07/15/17 12:03 98.1 66 18 116/60 (78) 98 07/15/17 12:00 98.0 83 13 122/59 (80) 96 07/15/17 11:42 07/15/17 11:15 07/15/17 11:15 84 07/15/17 10:36 Room Air 07/15/17 08:03 98.0 68 19 120/62 (81) 98 07/15/17 08:00 98.2 81 13 111/68 (82) 96 07/15/17 04:00 92 07/15/17 04:00 Room Air 07/15/17 04:00 98.0 68 18 118/60 (79) 98 07/15/17 00:00 97.9 67 18 112/66 (81) 99 07/15/17 00:00 Room Air 07/15/17 00:00 80 07/14/17 21:00 Room Air 07/14/17 20:30 21 07/14/17 20:24 07/14/17 20:00 98.2 71 18 110/58 (75) 99 07/14/17 19:43 (85) 07/14/17 18:30 75 19 124/66 (85) 100 Room Air Physical Exam Va cc at near OD 20/400 peripheral, OS 20/30 EOM full OU, no diplopia CVF decreased laterally OD Pupils 2-1, +APD OD IOP 12, 16 mm Hg Anterior exam OD - normal eyelid, C/S W&Q, K clear, AC deep, pupil round, PCIOL OS - normal eyelid, C/S W&Q, K clear, AC deep, pupil round, PCIOL Dilated exam OD - ON pale, macular scar, ves normal, vit clear, retina flat OS - 0.9 C/D, ves normal, vit clear, retina flat Laboratory Laboratory Tests Test 07/14/17 19:50 07/15/17 06:30 07/15/17 10:17 Random Glucose 139 271 Total Creatine Kinase 51 Troponin I 0.05 White Blood Count 7.8 Red Blood Count 4.49 Hemoglobin 13.7 Hematocrit 39.0 Mean Corpuscular Volume 86.9 Mean Corpuscular Hemoglobin 30.4 Mean Corpuscular Hemoglobin Concent 35.0 Red Cell Distribution Width 13.0 Platelet Count 148 Mean Platelet Volume 10.0 Neutrophils (%) (Auto) 83.7 Lymphocytes (%) (Auto) 11.5 Monocytes (%) (Auto) 4.6 Eosinophils (%) (Auto) 0.1 Basophils (%) (Auto) 0.1 Neutrophils # (Auto) 6.5 Lymphocytes # (Auto) 0.9 Monocytes # (Auto) 0.4 Eosinophils # (Auto) 0.0 Basophils # (Auto) 0.0 CBC Comment DIFF FINAL Differential Comment Blood Urea Nitrogen 26 Creatinine 1.04 Calcium Level 8.7 Sodium Level 133 Potassium Level 4.5 Chloride Level 98 Carbon Dioxide Level 26.3 Anion Gap 9 Estimat Glomerular Filtration Rate 68 Result Diagram: 07/15/17 0630 07/15/17 1017 Assessment and Plan Problem List: (1) Optic neuropathy, right ICD Codes: H46.9 - Unspecified optic neuritis Plan: Has received 3 days of IV Solumedrol and 11 days of oral prednisone. Extensive workup was negative. 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 And following up with Retina specialist at [facility] for right eye. (2) Primary open angle glaucoma (POAG) of both eyes, severe stage ICD Codes: H40.1133 - Primary open-angle glaucoma, bilateral, severe stage Plan: Continue latanoprost qhs OU and timolol BID OU. Follow up with Presser Machine at [facility] as scheduled. (3) Pseudophakia of both eyes ICD Codes: Z96.1 - Presence of intraocular lens Plan: Stable. Cecilia Vega MD Jul 15, 2017 16:45
[2017-07-15] MEDS ORDERED: INSULIN DETEMIR 100 UNITS/ML VIAL SQ SCH (21:00)
[2017-07-15] MEDS: LATANOPROST 0.005% OPHT SOLN 2.5 ML BTL EACH EYE SCH (21:09)
[2017-07-15] MEDS: ATORVASTATIN 20 MG TAB PO SCH (21:12)
[2017-07-16] VITALS: BP 139/63; PULSE 73; PULSE 84; RESP 18; TEMP 98.3; O2SAT 100
[2017-07-16 04:00] VITALS: BP 131/78; PULSE 76; PULSE 77; RESP 17; TEMP 98.2; O2SAT 98
[2017-07-16 08:00] VITALS: BP_SYST 116; BP_SYST 126; BP_SYST 131; BP_DIAS 63; BP_DIAS 71; BP_DIAS 76; PULSE 72; PULSE 82; PULSE 93; RESP 14; RESP 16; RESP 20; TEMP 97.9; TEMP 98.2; TEMP 98.9; O2SAT 98
[2017-07-16] MEDS: INSULIN ASPART SUPPLEMENTAL SCALE SQ SCH ×2 (08:00→12:58)
[2017-07-16] MEDS: KETOROLAC TROMETHAMINE 0.5% OPHT SOLN 5 ML BTL RIGHT EYE SCH ×2 (08:20→11:40)
[2017-07-16] MEDS: TIMOLOL MALEATE 0.25% OPHT SOLN 5 ML BTL EACH EYE SCH (08:22)
[2017-07-16] MEDS: ASPIRIN 325 MG TAB PO SCH (08:22)
[2017-07-16] MEDS: PANTOPRAZOLE SOD 40 MG DELAYED RELEASE TAB PO SCH (08:22)
[2017-07-16] MEDS: predniSONE 20 MG TAB PO SCH (08:22)
--- NOTE | 2017-07-16 09:10 | HHI.PR ---
Subjective Remarks no complains of chesrt pain ro shortness of breath no nausea or vomiting did very well with PT-- up and ambulating- seen with at bedside- going though a lot lately- bankruptcy- loss of some properties and now this eye condition some underlying depression- agrees and she sdtates she is going to talk about this with his PCP- if will benefit from some medications long talk with patient- appears more motivated Objective Vitals Vital Signs Date Time Temp Pulse Resp B/P (MAP) Pulse Ox O2 Delivery O2 Flow Rate FiO2 07/16/17 08:00 97.9 82 14 131/71 (91) 98 07/16/17 04:00 98.2 77 17 131/78 (95) 98 07/16/17 04:00 Room Air 07/16/17 04:00 76 07/16/17 00:00 73 07/16/17 00:00 Room Air 07/16/17 00:00 98.3 84 18 139/63 (88) 100 07/15/17 20:00 97.6 77 19 113/58 (76) 100 07/15/17 20:00 Room Air 07/15/17 20:00 64 07/15/17 16:03 98.4 72 19 146/65 (92) 99 07/15/17 15:38 07/15/17 15:36 84 07/15/17 12:03 98.1 66 18 116/60 (78) 98 07/15/17 12:00 98.0 83 13 122/59 (80) 96 07/15/17 11:42 07/15/17 11:15 07/15/17 11:15 84 07/15/17 10:36 Room Air I/O 07/15/17 07/15/17 07/15/17 07/16/17 07/16/17 07/16/17 07:00 15:00 23:00 07:00 15:00 23:00 Intake Total 488 ml 380 ml 200 ml Output Total 1000 ml Balance 488 ml -620 ml 200 ml Intake Oral 380 ml 200 ml IV Total 488 ml Output Urine Total 1000 ml # Voids 4 # Bowel Movements 0 1 Result Diagram: 07/15/17 0630 07/15/17 1017 Imaging Last Impressions Head CT 07/14/17 1115 Signed Impressions: Service Date/Time: Friday, July 14, 2017 11:30 - CONCLUSION: Negative for an acute process. Marcus Burgos MD FACR Chest X-Ray 07/14/17 1115 Signed Impressions: Service Date/Time: Friday, July 14, 2017 11:49 - CONCLUSION: Normal examination for a patient of this age. Javi Busch MD Carotid Artery Ultrasound 07/14/17 0000 Signed Impressions: Service Date/Time: Friday, July 14, 2017 19:07 - CONCLUSION: 1. Mild visible plaque formation in the carotid arteries. No hemodynamically significant stenosis. Arben Crews MD Objective Remarks awake and alert, oriented x 3 anicteric EOM full range of motion right eye- + lateral vision but medial vision absent no facial asymmetry no nuchal rigidity lungs-clear regular rhythm abdomen soft, nontender extremities no edema gait steady A/P Assessment and Plan 82-year-old male presenting with generalized weakness dizziness, weakness status post recent course of high-dose steroids June 26 45 was on high-dose IV steroids and was discharged on 60 mg of prednisone once a day for 11 days recently completed July 09. Possible relative adrenal insufficiency. Hypotension. - on admission History of hypertension good BPs off IVF Echo carotid US- negative Prednisone 20 mg po bid as OP was on Zestoretic- discontinued on admission- d/w patient and at length- FF up with PCP Optic neuropathy- History of glaucoma- chronic . no improvement with steroids. But will restart this due to above #1 and do gradual taper Continue on glaucoma eyedrops medications. spoke to briefly on phone - per was supposed to be referred to a neurovascular batch blender specialist in [place] - there was some "bleed" - Ophthalmology saw patient- OP ff up with his neurovascular surgeon as OP Diabetes type 2 on metformin + SS regular insulin Will expect blood sugars to be labile and erratic secondary to steroids patient on sliding scale resume his home meds- Metformin _ home insulin regimen SS on DC - discussed with - re-steroids Hyponatremia. . Improved. . TSH normal History of hyperlipidemia continue on statins. Generalized weakness. nonfocal exam Motor exam there was no proximal muscle weakness noted. did well with PT eval Leukocytosis- likely reactive from steroids use Advise patient to keep well hydrated DC today advise OP ff up with his PCP- - Dr. Bullock's office - early next week and Neurovascular surgery referral early next week- already called for appt long discussion with couple Sylvester Richardson MD Jul 16, 2017 09:10
--- NOTE | 2017-07-16 09:14 | HHI.FF ---
Face to Face Verification Diagnosis: (1) DM type 2 (diabetes mellitus, type 2) (2) Optic neuropathy, right (3) Primary open angle glaucoma (POAG) of both eyes, severe stage Physical Therapy Order: Strength and gait training Home Health Nursing Order: Medical education Signs/symptoms of disease process Diabetic education Medication education-adverse effect Nursing assessment with vital signs I have seen patient Dillon Monahan on 07/16/17. My clinical findings support the need for the requested home health care services because: Need for psychosocial assistance High risk of falls Infection w/ risk of complications I certify that my clinical findings support that this patient is homebound because: Need for psychosocial assistance Sylvester Richardson MD Jul 16, 2017 09:14
[2017-07-16] MEDS ORDERED: PRED5TAB PO (09:42)
[2017-07-16 11:58] VITALS: BP 123/75; PULSE 70; RESP 17; TEMP 97.7; O2SAT 99
[2017-07-16 12:00] VITALS: BP 94/64; PULSE 94; RESP 15; TEMP 97.7
--- NOTE | 2017-07-16 12:38 | HHI.DS ---
Discharge Summary Admission Date Jul 14, 2017 at 14:50 Discharge Date: Jul 16, 2017 Admitting Diagnosis Elevated Troponin, AMS, hyponatremia (1) Possible reltive adrenal insufficiency Diagnosis: Principal (2) DM type 2 (diabetes mellitus, type 2) ICD Code: E11.9 - Type 2 diabetes mellitus without complications (3) Optic neuropathy, right ICD Code: H46.9 - Unspecified optic neuritis Diagnosis: Secondary Procedures none Brief History - From Admission Patient is a 82-year-old male right handed history of diabetes type 2, hypertension. He was recently discharged from [facility] in [place] because of vision loss ? edema, inflammation specifically of the right eye. Unclear what the diagnosis is but sounds like optic neuritis as patient was placed on high-dose steroids. He states that he was on June 26. and he was given high -dose IV steroids and then was discharged on 60 mg of prednisone once a day for 11 days which he completed on July 09. He has been off the steroids for the past 5 days now. states that he has been getting weaker. This a.m. on way to [facility] while walking felt lightheaded with near passing out sensation. With bilateral leg weakness and feels like falling. Patient also states that he has not been eating well for the past 10 days. He checks his blood sugars on a regular basis and states good hypoglycemic awareness. He is on metformin at home for his diabetes and when discharged from [facility] he was given a sliding scale of insulins to be given based on blood sugar readings. His initial blood pressure on evaluation the ER was systolic blood pressures in the 80s. With regards to his vision he states that there was no improvement in the medial vision of his right eye even on completing course of steroids. His left eye has fairly good condition with history of glaucoma 20/40 vision. The plan was for follow-up and possible surgery per patient that involves going through the groin- doesn't sound like a shunt. Patient states that his knows more details. I tried calling the number listed [phone] no unanswered left message. Patient was referred here and admitted for further evaluation and management. Patient currently is awake alert denies any headache but is very anxious about totally losing his right vision CBC/BMP: 07/15/17 0630 07/15/17 1017 Significant Findings Laboratory Tests Test 07/14/17 11:30 07/14/17 13:20 07/14/17 19:50 07/15/17 06:30 White Blood Count 15.1 TH/MM3 (4.0-11.0) Neutrophils (%) (Auto) 75.8 % (16.0-70.0) 83.7 % (16.0-70.0) Monocytes (%) (Auto) 8.9 % (0.0-8.0) Neutrophils # (Auto) 11.5 TH/MM3 (1.8-7.7) Monocytes # (Auto) 1.4 TH/MM3 (0-0.9) Prothrombin Time 13.7 SEC (9.8-11.6) Blood Urea Nitrogen 34 MG/DL (7-18) Random Glucose 185 MG/DL (74-106) 139 MG/DL (74-106) Sodium Level 126 MEQ/L (136-145) Chloride Level 91 MEQ/L (98-107) Estimat Glomerular Filtration Rate 53 ML/MIN (>89) Troponin I 0.06 NG/ML (0.02-0.05) Urine Ketones 10 mg/dL (NEG) Urine Mucus FEW /lpf (OCC) Red Blood Count 4.49 MIL/MM3 (4.50-5.90) Platelet Count 148 TH/MM3 (150-450) Lymphocytes # (Auto) 0.9 TH/MM3 (1.0-4.8) Test 07/15/17 10:17 Blood Urea Nitrogen 26 MG/DL (7-18) Random Glucose 271 MG/DL (74-106) Sodium Level 133 MEQ/L (136-145) Estimat Glomerular Filtration Rate 68 ML/MIN (>89) Imaging Last Impressions Head CT 07/14/17 1115 Signed Impressions: Service Date/Time: Friday, July 14, 2017 11:30 - CONCLUSION: Negative for an acute process. Marcus Burgos MD FACR Chest X-Ray 07/14/17 1115 Signed Impressions: Service Date/Time: Friday, July 14, 2017 11:49 - CONCLUSION: Normal examination for a patient of this age. Javi Busch MD Carotid Artery Ultrasound 07/14/17 0000 Signed Impressions: Service Date/Time: Friday, July 14, 2017 19:07 - CONCLUSION: 1. Mild visible plaque formation in the carotid arteries. No hemodynamically significant stenosis. Arben Crews MD PE at Discharge awake and alert, oriented x 3 anicteric EOM full range of motion right eye- + lateral vision but medial vision absent no facial asymmetry no nuchal rigidity lungs-clear regular rhythm abdomen soft, nontender extremities no edema gait steady Pt update on day of discharge afebrile good readings=- BP up and ambulating- steady no dizziness seen with supporitve at bedside all ff up needed -are discussed and arranged by Hospital Course 82-year-old male presenting with generalized weakness dizziness, weakness status post recent course of high-dose steroids June 26 45 was on high-dose IV steroids and was discharged on 60 mg of prednisone once a day for 11 days recently completed July 09. Possible relative adrenal insufficiency. Hypotension. - on admission History of hypertension good BPs off IVF Echo carotid US- negative Prednisone 20 mg po bid as OP was on Zestoretic- discontinued on admission- d/w patient and at length- FF up with PCP Optic neuropathy- History of glaucoma- chronic . no improvement with steroids. But will restart this due to above #1 and do gradual taper Continue on glaucoma eyedrops medications. spoke to briefly on phone - per was supposed to be referred to a neurovascular paper sheeter specialist in [place] - there was some "bleed" - Ophthalmology saw patient- OP ff up with his neurovascular surgeon as OP Diabetes type 2 on metformin + SS regular insulin Will expect blood sugars to be labile and erratic secondary to steroids patient on sliding scale resume his home meds- Metformin _ home insulin regimen SS on DC - discussed with - re-steroids Hyponatremia. . Improved. . TSH normal History of hyperlipidemia continue on statins. Generalized weakness. nonfocal exam Motor exam there was no proximal muscle weakness noted. did well with PT eval Leukocytosis- likely reactive from steroids use Advise patient to keep well hydrated DC today Pt Condition on Discharge: Stable Discharge Disposition: Disch w/ Home Health Serv Discharge Time: > 30 minutes Discharge Instructions DIET: Follow Instructions for: Heart Healthy Diet, Diabetic Diet Activities you can perform: Weight Bearing as Qing Activities to Avoid: Strenuous Activity, Driving Follow up Referrals: Appointment for Follow Up [facility] Follow[facility]up - As Per Protocol with Kobe's office [facility]/ with [facility] ([phone]) New Orders: COMP MET PROF (CMP) - 07/19/17 New Medications: Prednisone (Prednisone) 5 Mg Tab 5 MG PO BID for RELADRE INSUF, #23 TAB 0 Refills take 3 tablets bid x 2 days them 2 tabs bid for 3 days then 1 tab bid x 3 days then 1 tab daily for 3 days then DC Continued Medications: Aspirin (Aspirin) 325 Mg Tab 325 MG PO DAILY, #30 TAB 0 Refills Atorvastatin (Lipitor) 40 Mg Tab 20 MG PO HS for Cholesterol Management, #30 TAB 0 Refills Ketorolac Opth Drops (Ketorolac Opth Drops) 0.5% Drops 1 DROP RIGHT EYE QID for Inflammation, #5 ML 0 Refills Latanoprost Opth Drops (Xalatan Opth Drops) 0.005% Drops 1 DROP EACH EYE HS for Glaucoma, #2.5 ML 0 Refills Metformin (Metformin) 1,000 Mg Tab 1000 MG PO BID for Blood Sugar Management, #60 TAB 0 Refills Omeprazole (Omeprazole) 20 Mg Tab 40 MG PO DAILY, #30 TAB 0 Refills Take 30 minutes prior to the same meal each day Timolol Opth Drops (Timoptic Opth Drops) 0.25 % Soln 2 DROP EACH EYE DAILY for Glaucoma, #1 BOTTLE 0 Refills Sylvester Richardson MD Jul 16, 2017 12:37
== END 2017-07-16 13:40 | disposition home health service (06) | DRG 644 ==
LOC: NEPE 10:48 → NEDA 14:50 → N04A 20:22
PROVIDERS: ADMIT Internal Medicine; ATTEND Internal Medicine
DX: E27.49 Other adrenocortical insufficiency (principal); H46.9 Unspecified optic neuritis; Z79.52 Long term (current) use of systemic steroids; E11.65 Type 2 diabetes mellitus with hyperglycemia; Z79.84 Long term (current) use of oral hypoglycemic drugs; I95.9 Hypotension, unspecified; E86.0 Dehydration; E87.1 Hypo-osmolality and hyponatremia; H40.1133 Primary open-angle glaucoma, bilateral, severe stage; I10 Essential (primary) hypertension; E78.5 Hyperlipidemia, unspecified; Z87.891 Personal history of nicotine dependence
CPT/HCPCS: 70450; 71045; 80048; 80053; 81001; 82533; 82550; 82947; 82948; 84443; 84484; 85025; 85610; 85730; 93005; 93306; 93880; 96360; J1815; J7030; J7040; J7512; P9612